=== PATIENT | female | born 1980 ===

== ENCOUNTER 2018-02-21 05:54 | Day surgery (SDC) | payer OTHER ==
[~2018-02-21 05:54] MED LIST: OBSTETRIX EC C1 EACH
== END 2018-02-21 12:50 | disposition home or self-care (01) ==
LOC: CIR.AMB 05:54
DX: O34.31 Maternal care for cervical incompetence, first trimester (principal); Z3A.13 13 weeks gestation of pregnancy

== ENCOUNTER 2018-03-28 11:19 | Inpatient (IN) | payer OTHER ==
[~2018-03-28] VITALS: Ht 157.5 cm; Wt 55.3 kg
== END 2018-04-16 08:09 | disposition home or self-care (01) | DRG 768 ==
LOC: OB/GYN 11:19
PROVIDERS: Obstetrics & Gynecology; ADMIT Obstetrics & Gynecology Maternal & Fetal Medicine
PROC: 4A1HXCZ Monitoring of Products of Conception, Cardiac Rate, External Approach (ICD-10-PCS; 2018-03-28)
PROC: BU4CZZZ Ultrasonography of Uterus and Ovaries (ICD-10-PCS; 2018-03-30)
PROC: BY4CZZZ Ultrasonography of Second Trimester, Single Fetus (ICD-10-PCS; 2018-03-30)
PROC: BY4CZZZ Ultrasonography of Second Trimester, Single Fetus (ICD-10-PCS; 2018-04-05)
PROC: BU4CZZZ Ultrasonography of Uterus and Ovaries (ICD-10-PCS; 2018-04-11)
PROC: BU4CZZZ Ultrasonography of Uterus and Ovaries (ICD-10-PCS; 2018-04-11)
PROC: BW40ZZZ Ultrasonography of Abdomen (ICD-10-PCS; 2018-04-11)
PROC: BY4CZZZ Ultrasonography of Second Trimester, Single Fetus (ICD-10-PCS; 2018-04-12)
PROC: 0UQC0ZZ Repair Cervix, Open Approach (ICD-10-PCS; 2018-04-13)
PROC: 10D17ZZ Extraction of Products of Conception, Retained, Via Natural or Artificial Opening (ICD-10-PCS; 2018-04-13)
PROC: 3E033VJ Introduction of Other Hormone into Peripheral Vein, Percutaneous Approach (ICD-10-PCS; 2018-04-13)
PROC: 3E0P7VZ Introduction of Hormone into Female Reproductive, Via Natural or Artificial Opening (ICD-10-PCS; 2018-04-13)
PROC: 30233N1 Transfusion of Nonautologous Red Blood Cells into Peripheral Vein, Percutaneous Approach (ICD-10-PCS; 2018-04-13)
PROC: 10E0XZZ Delivery of Products of Conception, External Approach (ICD-10-PCS; principal; 2018-04-13 19:00)
DX: O71.3 Obstetric laceration of cervix (principal); Z37.1 Single stillbirth; O34.32 Maternal care for cervical incompetence, second trimester; A41.89 Other specified sepsis; O41.1220 Chorioamnionitis, second trimester, not applicable or unspecified; O41.1420 Placentitis, second trimester, not applicable or unspecified; O60.12X0 Preterm labor second trimester with preterm delivery second trimester, not applicable or unspecified; O98.812 Other maternal infectious and parasitic diseases complicating pregnancy, second trimester; D62 Acute posthemorrhagic anemia; O72.0 Third-stage hemorrhage; O32.1XX0 Maternal care for breech presentation, not applicable or unspecified; O26.892 Other specified pregnancy related conditions, second trimester; D72.828 Other elevated white blood cell count; O99.012 Anemia complicating pregnancy, second trimester; Z3A.19 19 weeks gestation of pregnancy

== ENCOUNTER 2018-07-11 08:00 | Inpatient (IN) | payer OTHER ==
[~2018-07-11] VITALS: Ht 157.5 cm; Wt 54.4 kg
== END 2018-07-20 11:18 | disposition home or self-care (01) | DRG 819 ==
LOC: EDSTATUS 08:00 → O/R 07-18 07:08 → CIR.AMB 07-18 08:00 → EDSTATUS 07-18 08:00 → SURH 07-18 08:00 → OB/GYN 07-18 13:12
PROVIDERS: ADMIT Obstetrics & Gynecology
PROC: 0UVC7ZZ Restriction of Cervix, Via Natural or Artificial Opening (ICD-10-PCS; principal; 2018-07-18 11:00)
DX: O34.33 Maternal care for cervical incompetence, third trimester (principal)

== ENCOUNTER 2019-03-30 21:58 | Emergency (ER) | payer OTHER ==
[~2019-03-30] VITALS: Ht 167.6 cm; Wt 54.4 kg
== END 2019-03-30 23:54 | disposition home or self-care (01) ==
LOC: ER 21:58
DX: N93.8 Other specified abnormal uterine and vaginal bleeding (principal)

== ENCOUNTER 2019-07-08 11:11 | Inpatient (IN) | payer OTHER ==
[~2019-07-08] VITALS: Ht 157.5 cm; Wt 0.5 kg
[2019-07-08] MEDS ORDERED: NIFE60TA3 PO (12:58)
[2019-07-08] MEDS ORDERED: PRENATAL TABLE1 EACH PO (12:59)
[2019-07-08] MEDS ORDERED: ASPIR 8181 MG PO (13:00)
[2019-07-09] MEDS ORDERED: NIFEDIPINE ER30 M1 PO (10:15)
== END 2019-08-13 13:19 | disposition home or self-care (01) | DRG 786 ==
LOC: OB/GYN 11:11 → LDR 11:11 → OB/GYN 07-17 08:30
PROVIDERS: Obstetrics & Gynecology; ADMIT Obstetrics & Gynecology Maternal & Fetal Medicine
PROC: 0UVC7ZZ Restriction of Cervix, Via Natural or Artificial Opening (ICD-10-PCS; 2019-07-09)
PROC: BY4CZZZ Ultrasonography of Second Trimester, Single Fetus (ICD-10-PCS; 2019-08-05)
PROC: 0UCC7ZZ Extirpation of Matter from Cervix, Via Natural or Artificial Opening (ICD-10-PCS; 2019-08-11)
PROC: 0UCC0ZZ Extirpation of Matter from Cervix, Open Approach (ICD-10-PCS; 2019-08-11)
PROC: 0UVC0ZZ Restriction of Cervix, Open Approach (ICD-10-PCS; 2019-08-11)
PROC: BY4CZZZ Ultrasonography of Second Trimester, Single Fetus (ICD-10-PCS; 2019-08-11)
PROC: 10D00Z1 Extraction of Products of Conception, Low, Open Approach (ICD-10-PCS; principal; 2019-08-11 15:00)
DX: O34.32 Maternal care for cervical incompetence, second trimester (principal); A41.9 Sepsis, unspecified organism; O45.8X2 Other premature separation of placenta, second trimester; O98.812 Other maternal infectious and parasitic diseases complicating pregnancy, second trimester; Z3A.25 25 weeks gestation of pregnancy; Z37.0 Single live birth